=== PATIENT | female | born 1935 | race Caucasian/White ===

== ENCOUNTER 2017-10-11 09:22 | Day surgery (SDC) | payer MEDICARE ==
[~2017-10-11 09:22] MED LIST: Acetaminophen TAB* 325 MG PO PRN; Buffered Lidocaine 0.9% SYRIN* 5 ML/SYR SYRINGE INTRADERM ONE; DiMENhydriNATE IV* 50 MG/ML VIAL IV PUSH PRN; Levalbuterol 0.63MG/3ML NEB* UNIT OF USE INH PRN; NS 0.9% 1000 ML* 1,000 ML IV SCH; Naloxone* 0.4 MG/ML 1 ML VIAL IV PRN; Ondansetron INJ* 2 MG/ML VIAL IV PRN
[2017-10-11] MEDS ORDERED: ceFAZolin 2 GM in 100 MLS NS (*) BAG IVPB ONE (09:35)
[2017-10-11] MEDS ORDERED: Buffered Lidocaine 0.9% SYRIN* 5 ML/SYR SYRINGE ONE (09:35)
[2017-10-11] MEDS ORDERED: Midazolam* 1 MG/ML 2 ML VIAL (2 MG) ONE (11:12)
[2017-10-11] MEDS ORDERED: Propofol* 10 MG/ML 20 ML BTL IV PUSH ONE (12:04)
[2017-10-11] MEDS ORDERED: Lidocaine 2% PF * 5 ML VIAL ONE (12:04)
[2017-10-11] MEDS ORDERED: fentaNYL* 50 MCG/ML 2 ML VIAL (100 MCG VIAL) ONE (12:04)
[2017-10-11] MEDS ORDERED: Famotidine IV* 10 MG/ML 2 ML (20 mg) ONE (12:04)
[2017-10-11] MEDS ORDERED: Mineral Oil Sterile, TOPICAL* 25 ML BTL ONE (12:29)
[2017-10-11 14:24] VITALS: BP 103/59
== END 2017-10-11 14:26 | disposition home or self-care (01) ==
LOC: OR 09:22
PROVIDERS: ATTEND Plastic Surgery
DX: C44.311 Basal cell carcinoma of skin of nose (principal); J45.909 Unspecified asthma, uncomplicated; E03.9 Hypothyroidism, unspecified; G25.0 Essential tremor; M81.0 Age-related osteoporosis without current pathological fracture
CPT/HCPCS: 88305; 88331; 88332; A9270-GY; J2250; J2704; J3010